=== PATIENT | male | born 1955 | race Caucasian/White ===

== ENCOUNTER 2017-04-01 08:45 | Inpatient (IN) | payer BC ==
[2017-04-01 08:53] VITALS: BMI 25.1
[2017-04-08] MEDS ORDERED: CEFAZOLIN/Water 2 GM/20 ML SYRINGE ONE (06:51)
[2017-04-08] MEDS ORDERED: Tranexamic Acid 1,000 MG/100 ML BAG ONE ×2 (06:51→10:42)
[2017-04-08] MEDS ORDERED: traMADol HCl 50 MG TAB PO PRN ×2 (07:03→08:50)
[2017-04-08] MEDS ORDERED: Acetaminophen 325 MG TAB PO PRN (07:03)
[2017-04-08] MEDS ORDERED: HYDROcodone/Acetaminophen 10/325 mg Tablet PO PRN ×3 (07:03→08:50)
[2017-04-08] MEDS ORDERED: Fentanyl 100 MCG/2 ML VIAL SLOW IVP PRN ×2 (07:03)
[2017-04-08] MEDS ORDERED: Zolpidem Tartrate 5 MG TAB PO PRN ×2 (07:03→08:50)
[2017-04-08] MEDS ORDERED: diphenhydrAMINE 25 MG CAP PO PRN (07:03)
[2017-04-08] MEDS ORDERED: Ondansetron HCl/PF 4 MG/2 ML Vial IVP PRN ×3 (07:03→10:51)
[2017-04-08] MEDS ORDERED: Promethazine HCl 25 MG/ML VIAL IM PRN ×3 (07:03→10:51)
[2017-04-08] MEDS ORDERED: Vancomycin HCl 1.5 GM, Admixture Fee 1 EACH in Sodium Chloride 0.9% 250 ML 300 ML IVPB SCH (07:15)
[2017-04-08] MEDS ORDERED: Tranexamic Acid 1,000 MG in Sodium Chloride 0.9% 100 ML IVPB SCH (07:15)
--- NOTE | 2017-04-08 07:53 | RAD ---
UPRIGHT PORTABLE CHEST 1 VIEW: Date: 04/08/17 HISTORY: 61-year-old male for preoperative evaluation. FINDINGS: Heart size is normal. The lungs are clear. IMPRESSION: No acute intrathoracic disease. POS: [facility]
[2017-04-08] MEDS ORDERED: Fentanyl 100 MCG/2 ML VIAL ONE ×4 (08:30→11:47)
[2017-04-08] MEDS ORDERED: Midazolam HCl 2 mg/2 ml Vial ONE (08:30)
[2017-04-08] MEDS ORDERED: Lidocaine 1% (PF) 30 ML VIAL ONE (08:31)
[2017-04-08] MEDS ORDERED: Ropivacaine HCl/PF 250 ML in Premix Bag 1 BAG NERVE BLCK SCH (08:50)
[2017-04-08] MEDS ORDERED: Propofol 200 MG/20 ML VIAL ONE (09:28)
[2017-04-08] MEDS ORDERED: Ondansetron HCl/PF 4 MG/2 ML Vial ONE (09:28)
[2017-04-08] MEDS ORDERED: HYDROmorphone 2 MG/ML VIAL SLOW IVP PRN (10:51)
[2017-04-08] MEDS ORDERED: Promethazine HCl 25 MG/ML VIAL SLOW IVP PRN (10:51)
--- NOTE | 2017-04-08 12:45 | OP ---
DATE OF PROCEDURE: 04/08/2017 PREOPERATIVE DIAGNOSIS: End-stage tricompartmental osteoarthritis, left knee. POSTOPERATIVE DIAGNOSIS: End-stage tricompartmental osteoarthritis, left knee. OPERATIVE PROCEDURE: Cemented cruciate-sparing computer-assisted navigated left total knee arthropl live. SURGEON: Noel Tamayo M.D. SLP TEACHER: Krunal Ruelas PA-C ANESTHESIA: General via laryngeal mask airway augmented with single-shot femoral and single shot sc iatic block. COMPONENTS USED: [id number] Triathlon primary cemented cruciate-sparing size 6 femoral com ponent with a size 5 primary cemented tibial baseplate, 9 mm polyethylene fixed bearing insert and A 35 patellar button. FINDINGS: End-stage severe degenerative tricompartmental disease, bone on bone arthrosis, periartic ular osteophyte formation, large serous effusion, hypertrophic synovium. TOURNIQUET TIME: 59 minutes at 300 mmHg. ESTIMATED BLOOD LOSS: Less than 100 mL DRAINS: None. SPECIMENS: None. COMPLICATIONS: None. COUNTS: Correct. INDICATIONS FOR SURGERY: Cole is a 61-year-old white male who has had progressive left knee pain, amplified with standing and walking for the last 5-7 years. He has failed conservative management a nd elected to proceed with total knee arthroplasty as definitive treatment of his pain. PROCEDURE IN DETAIL: After informed consent was obtained in the preoperative holding area. The pat ient was taken to the operative suite where general anesthesia was induced. Once adequate level of general anesthesia was obtained, the patient was positioned and a well-padded tourniquet was placed around the left proximal thigh. The left lower extremity was then prepped and draped in the usual s terile fashion. Prior to exsanguination, a time out was called and all members of the surgical team agreed upon site, surgeon, and patient. The extremity was then exsanguinated and the tourniquet wa s raised. A midline longitudinal incision was then made directly over the patella extending two fin gerbreadths above the superior pole of the patella and two fingerbreadths inferior to the inferior p atellar pole of the patella. Deeper subcutaneous layers were dissected sharply and local bleeding w as controlled with Bovie electrocautery. A quad tendon longitudinal split was then made sharply and a median parapatellar arthrotomy was carried out both sharp and with Bovie electrocautery, carried down to one fingerbreadth medial to the tibial tubercle. The knee was then placed into flexion and the patella was everted nicely, and a copious fat pad ectomy was performed allowing for greater expo sure of the tibia. The computer-assisted distal femoral fiducial was then placed and pinned firmly, and the distal femoral cutting guide was pinned firmly into place. The oscillating saw was then us ed to remove the appropriate amount of bone. The 4-in-1 cutting block was then placed on the distal femur and the oscillating saw was used to remove the appropriate amount of bone off of the anterior , posterior, and chamfer cuts. After completion of bone cuts, the anterior cruciate ligament was re sected sharply and the posterior cruciate ligament retractor was placed and the tibia was subluxed f or better exposure. Partial meniscectomies were carried out, and the tibial computer-assisted fiduc ial was pinned, and the cutting guide was placed. Oscillating saw was then used to remove the bone with Hohmann retractors used to take care and protect the collateral ligaments. After the tibial re section was performed, a laminar bulk fluids handler was placed in between the freshened bone cuts. The knee p laced at 90 degrees and further bilateral meniscectomies were carried out, and the curved osteotome and curettage was used to remove any excess bone spurs in the posterior compartment. The trial femo ral component, tibial baseplate were placed with the appropriate polyethylene trial insert with an a ppropriate polyethylene spacer and patellar button. The knee was taken through full range of motion with flexion and extension from 0-90 degrees and patellar broach squarely in the trochlea without any squinting or subluxation noted. The knee was also stable to varus and valgus stressing at 0, 15 , 45, and 90 degrees of flexion. The drawer was negative. All trial components were then removed a nd the keel punch was used to provide the appropriate defect in the tibia with a mallet. The freshe yanet bone cuts were copiously irrigated with pulsatile lavage of about 1-1/2 liters to remove all exc ess debris. The freshened bone cuts were then dried and with suction and lap sponge. The knee was placed in flexion and retractors were placed to provide access to all bone cuts. Tobramycin impregn ated methyl methacrylate cement was then placed on the freshened bone cuts and implants which were m alleted firmly into place. Curettage and [place] elevators were used to remove any excess bone cement . The knee was placed into full extension and the patellar button was placed under compression, and the cement was allowed to cure. Once completed, the components were again taken through full range of motion and copious irrigation of the knee was carried out with another liter of normal saline. All components were inspected fully with full range of motion and varus and valgus stressing. There was no laxity noted and full extension was observed clinically. Primary closure was accomplished w ith #2 interrupted Vicryl stitch of the arthrotomy defect. This was oversewn with a #2 running Quil l barbed stitch. The subcutaneous layer was then closed with a running 0 barbed Monocryl stitch and skin closure accomplished with a running subcuticular 3-0 Monocryl barbed Quill stitch and augmente d with cement on the skin. Tourniquet was lowered. Good spontaneous return of distal pulses was no smita clinically and a sterile dressing was applied to the incision. The procedure was terminated wit hout any complications. The patient was awakened in the operative suite and taken to the recovery r oom in stable condition.
[2017-04-08] MEDS: Sodium Chloride 0.9% 1,000 ML IV SCH ×3 (12:52→23:50)
[2017-04-08] MEDS: Aspirin 325 MG TAB PO SCH ×2 (12:54→19:51)
--- NOTE | 2017-04-08 12:58 | RAD ---
LEFT KNEE TWO VIEWS: HISTORY: Postop total knee replacement. FINDINGS: There are recent postop changes of total knee arthroplasty, in good position and alignment. Soft ti ssue air is present. POS: [facility]
[2017-04-08] MEDS ORDERED: hydrALAZINE 20 MG/ML VIAL SLOW IVP PRN (13:34)
[2017-04-08] MEDS: HYDROcodone/Acetaminophen 10/325 mg Tablet PO PRN ×3 (13:54→22:22)
[2017-04-08] MEDS ORDERED: Tamsulosin HCl 0.4 MG CAP PO SCH ×2 (14:30→21:00)
[2017-04-08] MEDS ORDERED: Ropivacaine 0.5% HCl/PF (150 MG/30 ML VIAL) ONE (14:46)
[2017-04-08] MEDS ORDERED: Ropivacaine 0.2% HCl/PF (40 MG/20 ML VIAL) ONE (14:46)
[2017-04-08] MEDS: CEFAZOLIN/Water 2 GM/20 ML SYRINGE SLOW IVP SCH ×2 (14:58→23:44)
[2017-04-08] MEDS: traMADol HCl 50 MG TAB PO PRN (19:49)
[2017-04-08] MEDS: Fentanyl 100 MCG/2 ML VIAL IV PRN (23:44)
--- NOTE | 2017-04-09 00:13 | CON ---
DATE OF CONSULTATION: 04/08/2017 REASON FOR ADMISSION: Osteoarthritis of the left knee, status post left total knee arthroplasty. REASON FOR CONSULTATION: Medical management. CONSULTING PHYSICIAN: Noel Tamayo M.D. HISTORY OF PRESENT ILLNESS: This is a 61-year-old pleasant gentleman who presented with complaints of pain in the left knee, which was intolerable. The patient was taken to surgery today, had left t otal knee arthroplasty and has been admitted to the floor for postop observation. I have been consu lted for medical management. Right now he says that the pain is well controlled. No fever, no chil ls, feels a little bit of nausea, but no vomiting, has already urinated, no dysuria or urinary reten tion post-surgically. He also walked a few steps with physical therapy. PAST MEDICAL HISTORY: Significant for osteoarthritis, low back pain status post lumbar surgery, [place] allergies and indigestion. ALLERGIES: No known drug allergies. MEDICATIONS: Include Flomax, Protonix, multivitamins and meloxicam 15 mg p.o. once a day p.r.n. for pain in the past. The patient also takes Nasonex, Flexeril, Neurontin. ALLERGIES: No known drug allergies. SOCIAL HISTORY: Occasionally drinks otherwise does not smoke or do recreational drugs. PAST SURGICAL HISTORY: Knee arthroscopy and spine surgery. FAMILY HISTORY: Father of cancer, mother alive. REVIEW OF SYSTEMS: Significant for left knee discomfort and some nausea, otherwise no fever, no chi lls, no headache, no eye pain, no hearing loss, no latencies. No cough, no chest pain, diarrhea, dy suria or polyuria. No memory or mood changes. No neck pain. PHYSICAL EXAMINATION: VITAL SIGNS: Patient's blood pressure is 146/76, afebrile, pulse is 78, breathing comfortably on ro om air. GENERAL: The patient is lying in bed in no apparent distress. HEENT: Atraumatic and normocephalic. Pupils equally round, react to light. Extraocular movements intact. Mucous membranes moist. NECK: Supple. No JVD. CHEST: Breath sounds. There are no rales or rhonchi. HEART: S1, S2, no murmurs or gallops. ABDOMEN: Soft. EXTREMITIES: Left knee in dressing. Right knee: No cyanosis, clubbing, or edema. Distal pulses p resent. Right extremity: No cyanosis, clubbing, or edema. Distal pulses are present. NEUROLOGICAL: Alert, awake, oriented. No cranial deficits. No sensorimotor deficits. LABORATORY DATA: Chest x-ray negative. EKG, normal sinus rhythm at 77. Potassium is 4.4, creatini ne 0.9. UA is negative. INR 0.9. ASSESSMENT AND PLAN: 1. Benign prostatic hypertrophy. We will resume Flomax. The patient has no urinary retention and has already voided post-surgically. 2. Osteoarthritis. We will do p.r.n. pain medications. 3. Status post left total knee replacement. Follow up with Dr. Tamayo's plan. Thanks Dr. Tamayo, in letting me participate in this patient's care. We will follow with you and do the need for.
[2017-04-09] MEDS: HYDROcodone/Acetaminophen 10/325 mg Tablet PO PRN ×3 (02:19→17:23)
[2017-04-09] MEDS: Fentanyl 100 MCG/2 ML VIAL IV PRN ×2 (03:27→06:29)
[2017-04-09 05:18] LABS: Hematocrit 39.3 % (42.0-52.0); Mean Platelet Volume 7.4 fL (7.4-10.4); Red Blood Cell (RBC) Count 4.14 mill/uL (4.70-6.10); White Blood Cell (WBC) Count 12.5 thou/uL (4.8-10.8)
[2017-04-09] MEDS: Ferrous Gluconate 324 MG TAB PO SCH ×2 (08:38→17:48)
[2017-04-09] MEDS: Aspirin 325 MG TAB PO SCH ×2 (08:38→20:42)
[2017-04-09] MEDS: Multivitamin W/ Minerals 1 TAB PO SCH (08:38)
[2017-04-09] MEDS: Senokot S 8.6-50 MG TAB PO SCH ×2 (08:38→20:42)
[2017-04-09] MEDS ORDERED: Ketorolac Tromethamine 60 MG/2 ML VIAL ONE (08:44)
[2017-04-09] MEDS ORDERED: Amoxicillin/Potassium Clav 875 MG TAB PO SCH (09:00)
[2017-04-09] MEDS ORDERED: Ketorolac Tromethamine 30 MG/ML VIAL ONE (10:57)
[2017-04-09] MEDS: Ketorolac Tromethamine 30 MG/ML VIAL IVP PRN ×2 (11:15→20:41)
[2017-04-09] MEDS: Sodium Chloride 0.9% 1,000 ML IV SCH ×2 (15:23→22:32)
--- NOTE | 2017-04-09 16:04 | PDOC.PN ---
- Subjective Encounter Start Date: 04/09/17 Encounter Start Time: 16:04 Patient seen and examined. No new complaints. No overnight events - Objective MAR Reviewed: Yes Vital Signs & Weight: Vital Signs (12 hours) Temp Pulse Resp BP Pulse Ox 04/09/17 11:15 99.0 F 81 12 139/75 92 L 04/09/17 08:00 98.6 F 83 14 113/69 91 L 04/09/17 07:34 98.4 F 82 18 04/09/17 04:10 98.4 F 82 18 142/77 H 93 L Weight Admit Weight 180 lb Weight 180 lb I&O: 04/08/17 04/09/17 04/10/17 06:59 06:59 06:59 Intake Total 1800 Output Total 1600 Balance 200 Result Diagrams: 04/09/17 04:27 Phys Exam - Physical Examination Constitutional: NAD HEENT: PERRLA Neck: no JVD Respiratory: no rales Cardiovascular: RRR Gastrointestinal: non-tender Musculoskeletal: pulses present Neurological: moves all 4 limbs Psychiatric: A&O x 3 Dx/Plan (1) BPH (benign prostatic hyperplasia) Code(s): N40.0 - BENIGN PROSTATIC HYPERPLASIA WITHOUT LOWER URINRY TRACT SYMP Status: Acute (2) Back pain Code(s): M54.9 - DORSALGIA, UNSPECIFIED Status: Acute (3) Pain management Code(s): R52 - PAIN, UNSPECIFIED Status: Acute (4) Knee pain Code(s): M25.569 - PAIN IN UNSPECIFIED KNEE Status: Acute (5) GERD (gastroesophageal reflux disease) Code(s): K21.9 - GASTRO-ESOPHAGEAL REFLUX DISEASE WITHOUT ESOPHAGITIS Status: Acute - Plan * doing well * s/p lt tka- 04/08- doing well, f/u ortho plan * cont current mx
[2017-04-09] MEDS ORDERED: Tamsulosin HCl 0.4 MG CAP PO SCH (21:00)
[2017-04-10] MEDS: HYDROcodone/Acetaminophen 10/325 mg Tablet PO PRN ×4 (03:08→14:31)
[2017-04-10 05:19] LABS: Hematocrit 38.1 % (42.0-52.0); Mean Platelet Volume 7.9 fL (7.4-10.4); Red Blood Cell (RBC) Count 4.03 mill/uL (4.70-6.10); White Blood Cell (WBC) Count 11.2 thou/uL (4.8-10.8)
[2017-04-10] MEDS: Ketorolac Tromethamine 30 MG/ML VIAL IVP PRN (06:55)
--- NOTE | 2017-04-10 07:49 | DIS ---
DATE OF ADMISSION: 04/08/2017 DATE OF DISCHARGE: 04/10/2017 PREOPERATIVE DIAGNOSIS: Left knee osteoarthritis, degenerative joint disease. POSTOPERATIVE DIAGNOSIS: Left knee osteoarthritis, degenerative joint disease. PROCEDURE: The patient underwent a left knee total knee replacement. HOSPITAL COURSE: Hospital stay was unremarkable. He was admitted to [address] he worked with staff, physical therapy and occupational therapy, and progressed quite well. By posto perative day #2, he was ready to discharge home. DISCHARGE CONDITION: Stable. FOLLOWUP: Followup would be in 3-4 weeks, sooner if there are problems or concerns. DISCHARGE MEDICATIONS: Given with usage instructions. Tien Taylor PA-C dictating for Dr. Noel Tamayo.
[2017-04-10] MEDS: Aspirin 325 MG TAB PO SCH (09:46)
[2017-04-10] MEDS: Senokot S 8.6-50 MG TAB PO SCH (09:46)
[2017-04-10] MEDS: Multivitamin W/ Minerals 1 TAB PO SCH (09:48)
[2017-04-10] MEDS: Ferrous Gluconate 324 MG TAB PO SCH (09:48)
[2017-04-10] MEDS: Sodium Chloride 0.9% 1,000 ML IV SCH (09:55)
[2017-04-10 11:43] VITALS: BP 100/60; TEMP 98.2
[2017-04-10] MEDS: traMADol HCl 50 MG TAB PO PRN (12:37)
--- NOTE | 2017-04-11 08:13 | DIS ---
PRIMARY CARE PHYSICIAN: Dr. Isreal Hill M.D. DATE OF ADMISSION: 04/08/2017 DATE OF DISCHARGE: 04/10/2017 DISCHARGE DISPOSITION: Home. PRIMARY DISCHARGE DIAGNOSES: 1. Osteoarthritis of the left knee, status post left total knee replacement. 2. History of osteoarthritis. 3. History of chronic low back pain. 4. Seasonal allergies. DISCHARGE MEDICATIONS: Include Flomax 0.4 extended release 2 tablets at bedtime, Protonix 40 mg twic e a day, multivitamin once daily, meloxicam 15 mg daily, Lycopene 10 mg daily, Lutein 20 mg daily, No rco 10/325 mg 1-2 tablets q.4 hours p.r.n. pain, Flonase nasal spray daily, fish oil 1200 mg daily, a spirin 325 mg daily, vitamin C 1000 mg daily, and Tylenol 1000 mg q.6 h. as needed. PROCEDURES DONE DURING ADMISSION: The patient had a left total knee arthroplasty. ALLERGIES: GLUTEN AND STATINS, HMG-COA REDUCTASE INHIBITORS. HOSPITAL COURSE: Mr. Mahoney is a pleasant 61-year-old gentleman who was admitted for an elective left total knee replacement. He had failed conservative measures. The hospitalist service was consulted for medical management. The patient had an essentially uneventful postoperative course and was subs equently discharged home on 04/10/2017.
== END 2017-04-10 15:30 | disposition home or self-care (01) | DRG 470 ==
LOC: SURG A 04-08 06:27 → SJJU 04-08 12:15
PROVIDERS: ADMIT Orthopaedic Surgery; ATTEND Orthopaedic Surgery
PROC: 0SRD0J9 Replacement of Left Knee Joint with Synthetic Substitute, Cemented, Open Approach (ICD-10-PCS; principal; 2017-04-08)
PROC: 3E0T3BZ Introduction of Anesthetic Agent into Peripheral Nerves and Plexi, Percutaneous Approach (ICD-10-PCS; 2017-04-08)
DX: M17.12 Unilateral primary osteoarthritis, left knee (principal); G89.29 Other chronic pain; M54.5 Low back pain; J30.2 Other seasonal allergic rhinitis; Z88.8 Allergy status to other drugs, medicaments and biological substances; Z91.018 Allergy to other foods; N40.0 Benign prostatic hyperplasia without lower urinary tract symptoms; K21.9 Gastro-esophageal reflux disease without esophagitis
CPT/HCPCS: 36415; 71010; 85027; C1713; C1776; G8978-GP-CK; G8979-GP-CJ; J1885; J2001; J2250; J2405; J2550; J2704; J2795; J3010; J3370; J7050

== ENCOUNTER 2021-11-13 09:47 | Outpatient (CLI) | payer MEDICARE, OTHER ==
[2021-11-13 10:53] LABS: Bilirubin Neg (Negative); Blood, Urine Negative (Negative); Clarity Clear (Clear); Glucose, Urine (Dipstick) Normal (Negative); Ketone, Urine Negative (Negative); Leukocyte Negative (Negative); Nitrite Negative (Negative); Protein, Urine (Dipstick) Negative (Neg-Trace); Specific Gravity, Urine 1.025 (1.002-1.036); Urobilinogen Normal mg/dL (Less than 2)
[2021-11-13 10:56] LABS: Hemoglobin 14.8 g/dL (13.5-17.5); Mean Corpuscular Hemoglobin 30.3 pg (27.0-33.0); Mean Corpuscular Volume 89.1 fl (81.2-95.1); Mean Platelet Volume 9.6 fl (7.4-10.4); Platelet Count 318 10x3/uL (150-450); RBC Distribution Width 12.5 % (11.5-14.5); Red Blood Cell (RBC) Count 4.88 10x6/uL (4.32-5.72); White Blood Cell (WBC) Count 5.1 10x3/uL (3.5-10.5)
[2021-11-13 11:10] LABS: Bacteria/HPF None Seen HPF (None Seen); RBC/HPF 0-3 HPF (0-3); Squamous Epithelial None Seen HPF (0-3); WBC/HPF None Seen HPF (0-3)
[2021-11-13 11:10] LABS: Anion Gap 16 mmol/L (10-20); BUN (Urea Nitrogen) 18 mg/dL (8.4-25.7); Calc. Creatinine Clearance 0 mL/min (70-130); Calcium 9.2 mg/dL (7.8-10.44); Carbon Dioxide 22 mmol/L (23-31); Chloride 106 mmol/L (98-107); Glucose 143 mg/dL (80-115); Potassium 4.3 mmol/L (3.5-5.1); Sodium 140 mmol/L (136-145)
[2021-11-13 11:11] LABS: INR-International Normal Ratio 0.9; PTT 27.6 sec (22.0-33.0)
== END 2021-11-13 09:48 | disposition home or self-care (01) ==
LOC: LABBT 09:47
PROVIDERS: ATTEND Urology
DX: Z01.818 Encounter for other preprocedural examination (principal); N40.1 Benign prostatic hyperplasia with lower urinary tract symptoms; N13.8 Other obstructive and reflux uropathy; N52.9 Male erectile dysfunction, unspecified; Z20.822 Contact with and (suspected) exposure to COVID-19
CPT/HCPCS: 80048; 81001; 85027; 85610; 85730; 87086; 93005; U0003; U0005; 93010

== ENCOUNTER 2021-11-16 05:42 | Day surgery (SDC) | payer MEDICARE, OTHER ==
[2021-11-14 10:26] VITALS: BMI 26.4
[2021-11-16] MEDS ORDERED: fentaNYL Citrate/PF 100 MCG/2 ML SYRINGE ONE (06:43)
[2021-11-16] MEDS ORDERED: Phenylephrine 10 MG/ML VIAL ONE (07:16)
[2021-11-16] MEDS ORDERED: B & O ONE (07:23)
[2021-11-16] MEDS ORDERED: Levofloxacin 500 mg/D5W 100 ml Premix Bag ONE (07:28)
[2021-11-16] MEDS ORDERED: Lidocaine 1% PF 5 ML VIAL ONE (07:34)
[2021-11-16] MEDS ORDERED: HYDROcodone/Acetaminophen 5/325 mg Tablet ONE ×2 (08:56→09:27)
[2021-11-16] MEDS ORDERED: Oxybutynin 5 MG TAB ONE (09:10)
== END 2021-11-16 10:18 | disposition home or self-care (01) ==
LOC: SDC 05:42
PROVIDERS: ATTEND Urology
PROC: 0T7D8DZ Dilation of Urethra with Intraluminal Device, Via Natural or Artificial Opening Endoscopic (ICD-10-PCS; principal; 2021-11-16)
DX: N40.1 Benign prostatic hyperplasia with lower urinary tract symptoms (principal); N13.8 Other obstructive and reflux uropathy; R35.0 Frequency of micturition; R35.1 Nocturia; R39.11 Hesitancy of micturition; R39.12 Poor urinary stream; N52.9 Male erectile dysfunction, unspecified; Z79.82 Long term (current) use of aspirin; Z79.899 Other long term (current) drug therapy; Z88.8 Allergy status to other drugs, medicaments and biological substances; Z91.018 Allergy to other foods
CPT/HCPCS: C9740; L8699; J1956; J2370